=== PATIENT | female | born 1945 | race Caucasian/White ===

== ENCOUNTER → 2017-04-06 | Outpatient (CLI) | payer MEDICARE ==
[2017-04-06 10:37] LABS: HEMATOCRIT 44.2 % (36.0-47.0); HEMOGLOBIN 15.1 g/dL (12.0-15.5); RED BLOOD COUNT 4.93 x10^6/uL (3.50-5.40); RED CELL DISTRIBUTION WIDTH 13.7 % (11.5-14.5); WHITE BLOOD COUNT 4.8 x10^3/uL (4.0-11.0)
[2017-04-06 10:58] LABS: ALBUMIN 3.7 g/dL (3.4-5.0); ALBUMIN/GLOBULIN RATIO 1.2 (1.0-1.7); CREATININE 0.8 mg/dL (0.6-1.0); GFR 71.1; POTASSIUM 4.3 mmol/L (3.5-5.1); TOTAL BILIRUBIN 0.5 mg/dL (0.2-1.0); TOTAL PROTEIN 6.8 g/dL (6.4-8.2)
[2017-04-06 10:59] LABS: CHOLESTEROL/HDL RATIO 2.9
== END | disposition home or self-care (01) ==
LOC: LAB 10:13
PROVIDERS: ATTEND Family Medicine
DX: E78.5 Hyperlipidemia, unspecified (principal); D69.6 Thrombocytopenia, unspecified
CPT/HCPCS: 36415; 80053; 80061; 85027

== ENCOUNTER → 2017-05-04 | Outpatient (CLI) | payer MEDICARE ==
--- NOTE | 2017-05-04 09:57 | KCIC ---
MR of the right hip Indication: Right hip pain. Pain for about 18 months. Technique: Standard multiplanar sequences are obtained. Findings: Bones: No bone lesion, acute fracture or acute bone marrow edema. No femoral head osteonecrosis. Effusion: No significant effusion Cartilage: No advanced primary osteoarthritis. Labrum: No evidence of labral tear or para labral cyst Gluteus minimus and medius tendon: High-grade tear of the right gluteus minimus tendon with mild adjacent edema and fluid. Gluteus medius tendon intact. Hamstring tendon: Intact Iliopsoas tendon: Intact Rectus femoris tendon attachment:Intact Soft tissue:No significant acute findings. Diagnostically limited coronal inversion recovery survey sequence obtained with a large [id number] demonstrates no definite additional acute findings, but refer to the separate MR of the left hip which is performed on the same day and interpreted in a separate report. Impression: High-grade tear of the right gluteus minimus tendon. Electronically signed by: Aravind Catherine MD (05/04/2017 9:53 AM) [facility]
--- NOTE | 2017-05-04 10:00 | KCIC ---
MR of the left hip Indication: Left hip pain for about 18 months. No known injury. Technique: Standard multiplanar sequences are obtained. Findings: Bones: No bone lesion, acute fracture or acute bone marrow edema. No femoral head osteonecrosis. Effusion: No significant effusion Cartilage: No advanced primary osteoarthritis. There are small degenerative osteophytes about the left hip. Labrum: No evidence of labral tear or para labral cyst Gluteus minimus and medius tendon: Tendinosis, with moderate to high-grade tearing of the left gluteus minimus tendon. Left gluteus medius tendon is intact. Hamstring tendon: Intact Iliopsoas tendon: Intact Rectus femoris tendon attachment:Intact Soft tissue:No significant acute findings. Impression: Moderate to high-grade tear of the left gluteus minimus tendon. Electronically signed by: Aravind Catherine MD (05/04/2017 9:56 AM) [facility]
== END | disposition home or self-care (01) ==
LOC: KCIC MRI 07:37
PROVIDERS: ATTEND Orthopaedic Surgery Sports Medicine
DX: M25.552 Pain in left hip (principal); M25.551 Pain in right hip; R60.0 Localized edema
CPT/HCPCS: 73721